=== PATIENT | male | born 1995 | race Asian ===

== ENCOUNTER 2023-08-25 16:35 | Emergency (ER) | payer SELFPAY ==
[~2023-08-25] VITALS: Ht 167.6 cm; Wt 63.5 kg
[2023-08-25 17:33] VITALS: BP_SYST 114; PULSE 98; RESP 18; TEMP 97.3; O2SAT 100
[2023-08-25] MEDS ORDERED: LIDOCAINE/EPI 1% 1:100000 20 ML VIAL INJ ONE (21:00)
[2023-08-25 21:49] VITALS: TEMP 97.2
[2023-08-25 22:17] VITALS: BP_SYST 122; PULSE 104; RESP 18; O2SAT 95
[2023-08-25] MEDS ORDERED: BACITRACIN 1 GM OINT TP ONE (22:21)
== END 2023-08-25 22:17 | disposition home or self-care (01) ==
LOC: SED 16:35
DX: S01.81XA Laceration without foreign body of other part of head, initial encounter (principal); Z79.899 Other long term (current) drug therapy; V00.141A Fall from scooter (nonmotorized), initial encounter; Y93.89 Activity, other specified; Y92.89 Other specified places as the place of occurrence of the external cause; Y99.8 Other external cause status
CPT/HCPCS: 99282